=== PATIENT | male | born 1985 | race African-American/Black ===

== ENCOUNTER 2019-01-08 20:06 | Emergency (ER) | payer OTHER ==
[~2019-01-08] VITALS: Ht 190.5 cm; Wt 113.0 kg
[2019-01-08] MEDS ORDERED: LORAZEPAM 0.5MG TABLET PO ONE (23:15)
[2019-01-09 01:27] VITALS: BP 136/82
== END 2019-01-09 01:30 | disposition home or self-care (01) ==
LOC: ER 21:23
DX: F12.180 Cannabis abuse with cannabis-induced anxiety disorder (principal)
CPT/HCPCS: 93005; 99284

== ENCOUNTER 2019-02-06 22:02 | Emergency (ER) | payer OTHER ==
[~2019-02-06] VITALS: Ht 203.2 cm; Wt 137.0 kg
[2019-02-06] MEDS ORDERED: HYDROCODONE/ACETAMINOPHEN 5/325MG TABLET PO ONE (23:30)
[2019-02-06] MEDS ORDERED: KETOROLAC 60MG/2ML VIAL IM ONE (23:30)
[2019-02-07 00:45] VITALS: BP 120/80
== END 2019-02-07 01:41 | disposition home or self-care (01) ==
LOC: ER 22:02
DX: S43.401A Unspecified sprain of right shoulder joint, initial encounter (principal); F12.10 Cannabis abuse, uncomplicated; F41.9 Anxiety disorder, unspecified; Z91.013 Allergy to seafood; X50.9XXA Other and unspecified overexertion or strenuous movements or postures, initial encounter; Y93.67 Activity, basketball; Y92.89 Other specified places as the place of occurrence of the external cause; Y99.8 Other external cause status
CPT/HCPCS: 73030; 96372; 99283; J1885

== ENCOUNTER 2023-05-24 21:55 | Emergency (ER) | payer OTHER ==
[~2023-05-24] VITALS: Ht 203.2 cm; Wt 133.4 kg
[2023-05-24 22:01] VITALS: BP 122/82; O2SAT 98
[2023-05-24] MEDS ORDERED: NAPR-681 PO (23:33)
[2023-05-24 23:40] VITALS: PULSE 77; RESP 16; TEMP 98.3
== END 2023-05-24 23:44 | disposition home or self-care (01) ==
LOC: ER 21:55
DX: S40.022A Contusion of left upper arm, initial encounter (principal); S00.83XA Contusion of other part of head, initial encounter; S80.12XA Contusion of left lower leg, initial encounter; F41.9 Anxiety disorder, unspecified; F12.10 Cannabis abuse, uncomplicated; V49.49XA Driver injured in collision with other motor vehicles in traffic accident, initial encounter; Y93.89 Activity, other specified; Y92.89 Other specified places as the place of occurrence of the external cause; Y99.8 Other external cause status
CPT/HCPCS: 71046; 73060; 73590; 99284